=== PATIENT | male | born 1940 | race Two or more races ===

== ENCOUNTER → 2016-06-07 | Outpatient (CLI) | payer OTHER ==
[~2016-06-07] MED LIST: ASPI-482 PO; GADOBUTROL 10 MMOL/10 ML VIAL IV ONE
--- NOTE | 2016-06-07 13:36 | KCIC ---
PROCEDURE MRI brain with and without contrast. 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 TECHNIQUE MRI of the brain was performed before and after the intravenous administration of 9 milliliters Gadavist. FINDINGS There is no diffusion restriction. There are no enhancing parenchymal lesions. There limitations from motion artifact. There is no mass or abnormal enhancement within either cerebellopontine angle or internal auditory canal. The prepontine cistern and cavernous sinuses are unremarkable. There is a chronic microhemorrhage in the left parietal lobe. 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 Scattered regions of T2/FLAIR hyperintensity within the periventricular and subcortical white matter elsewhere indicate [id number] chronic small vessel ischemic change. The ventricles are normal in size and position for patient age. There are changes of bilateral cataract surgery. No mass is appreciated in either orbit. There is mild mucosal thickening in the ethmoid air cells. There is a small amount of fluid in the mastoid air cells bilaterally. The calvarium is unremarkable. IMPRESSION - No mass or abnormal enhancement is appreciated along the cranial nerves in the setting of motion artifact. 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 - Mild to moderate chronic small vessel ischemic white matter change. Electronically signed by: Vin Zayas (Jun 07, 2016 13:34:52)
== END | disposition home or self-care (01) ==
LOC: KCIC MRI 12:02
PROVIDERS: ATTEND Ophthalmology
DX: H49.10 Fourth [trochlear] nerve palsy, unspecified eye (principal)
CPT/HCPCS: 70553; 82565

== ENCOUNTER → 2021-03-04 | Outpatient (CLI) | payer OTHER ==
[~2021-03-04] MED LIST changes: -GADOBUTROL 10 MMOL/10 ML VIAL IV ONE
--- NOTE | 2021-03-04 12:41 | RAD ---
MR LUMBAR SPINE [id number] Date: 03/04/2021 8:21 AM Indication: bilateral leg pain with swelling R>L Comparison: None. Technique: Multi-planar multi-weighted magnetic resonance imaging of the lumbar spine was performed w ithout intravenous contrast using the standard lumbar spine protocol. FINDINGS: Transitional anatomy at the lumbosacral junction with lumbarization of S1 and rudimentary disc at S1- S2. Left convex lumbar curvature. No acute fracture. Moderate to severe multilevel degenerative disc jey ccation and disc height loss. Multilevel trace degenerative endplate edema. The conus terminates at a normal level. No abnormal signal is seen within the visualized distal spina l cord. No clumping of intrathecal nerve roots. No soft tissue abnormality in the visualized abdomen or pelvis. T12-L1: No disc bulge. Severe right facet arthropathy. No significant spinal stenosis. Mild to modera te right neural foraminal narrowing. L1-L2: Disc bulge. Severe right facet arthropathy. No spinal stenosis. Mild to moderate right neural foraminal narrowing. L2-L3: Disc bulge. Mild facet arthropathy. Mild spinal stenosis and right lateral recess and. Mild bi lateral neural foraminal narrowing. L3-L4: Disc bulge. Mild facet arthropathy. Moderate spinal stenosis and lateral recess narrowing. Mil d right and moderate left neural foraminal narrowing. L4-L5: Disc bulge. Severe facet arthropathy. Ligamentum flavum thickening. Severe spinal stenosis and lateral recess narrowing. Moderate right and moderate to severe left neural foraminal narrowing. L5-S1: Disc bulge. Severe facet arthropathy. Ligamentum flavum thickening. Severe spinal stenosis. Mo derate to severe bilateral neural foraminal narrowing. IMPRESSION: 1. Transitional lumbosacral anatomy with vertebral body numbering as detailed above. 2. Advanced lumbar spondylosis with severe spinal canal stenosis L4-5 and L5-S1. Electronically signed by: Raffi Reynaga MD (03/04/2021 12:38 PM) [id number]
== END ==
LOC: MRI 08:19
PROVIDERS: ATTEND Specialist
DX: M47.817 Spondylosis without myelopathy or radiculopathy, lumbosacral region (principal); M48.07 Spinal stenosis, lumbosacral region; M51.27 Other intervertebral disc displacement, lumbosacral region; M48.8X7 Other specified spondylopathies, lumbosacral region; M79.604 Pain in right leg; M79.605 Pain in left leg; M79.89 Other specified soft tissue disorders
CPT/HCPCS: 72148